=== PATIENT | male | born 1985 | race Caucasian/White ===

== ENCOUNTER 2022-10-23 20:44 | Emergency (ER) | payer BC, SELFPAY ==
[2022-10-23 21:12] VITALS: BP 150/96; PULSE 83; RESP 20; TEMP 36.7; O2SAT 99; BMI 36.6
--- NOTE | 2022-10-23 22:47 | CTR_ITS ---
PROCEDURE INFORMATION: Exam: CT Abdomen And Pelvis Without Contrast Exam date and time: 10/23/2022 10:51 PM Age: 37 years old Clinical indication: Abdominal pain; Flank; Right; Additional info: R flank pain TECHNIQUE: Imaging protocol: Computed tomography of the abdomen and pelvis without contrast. Sagittal and coronal reformatted images were created and reviewed. Radiation optimization: All CT scans at this facility use at least one of these dose optimization techniques: automated exposure control; mA and/or kV adjustment per patient size (includes targeted exams where dose is matched to clinical indication); or iterative reconstruction. REPORTING DATA: Count of CT and Cardiac NM exams in prior 12 months: This patient has received 0 known CTs and 0 known cardiac nuclear medicine studies in the 12 months prior to the current study. COMPARISON: No relevant prior studies available. RADIATION DOSE METRICS: Total DLP (mGy-cm): 1032.6 FINDINGS: Limitations: Evaluation of solid organs and vasculature is limited without intravenous contrast. This is standard protocol for evaluation of possible urolithiasis. Lungs: Visualized lungs are clear. Pleural spaces: No pleural effusion. Heart: Visualized portions of the heart are unremarkable. Liver: The liver is unremarkable. Gallbladder and bile ducts: Few stones in the gallbladder. No gallbladder wall thickening. No biliary ductal dilatation. Pancreas: The pancreas is unremarkable. No pancreatic ductal dilatation. Spleen: The spleen is unremarkable. Adrenal glands: The right and left adrenal glands are unremarkable. Kidneys and ureters: The right and left kidneys are unremarkable. The right and left ureters are unremarkable. No hydroureteronephrosis. No calcified urolithiasis. Stomach and bowel: No obstruction. No mucosal thickening. Appendix: The appendix is visualized and is unremarkable. No findings to suggest acute appendicitis. Intraperitoneal space: No free intraperitoneal air. No ascites. No loculated fluid collections to suggest an abscess. Vasculature: Minimal atherosclerotic changes in the visualized arteries. No evidence for aortic aneurysm. Lymph nodes: No lymphadenopathy. Urinary bladder: Unremarkable as visualized. Reproductive: Unremarkable as visualized. Bones/joints: [id number] multilevel degenerative changes in the visualized spine. Soft tissues: The extra-abdominal soft tissues are unremarkable. CT/CT kidney stone [id number] IMPRESSION: 1. No acute abnormality in the abdomen or pelvis. 2. Cholelithiasis. 3. Incidental/nonacute findings are listed in the report.
[2022-10-23 23:30] LABS: Basophils # 0.1 10^3/uL (0.0-0.1); Basophils % 0.4 %; Eosinophils # 0.2 10^3/uL (0.0-0.8); Eosinophils % 1.6 %; Hematocrit 47.2 % (42.0-52.0); Hemoglobin 15.7 g/dL (11.7-16.6); Lymphocytes # 2.5 10^3/uL (0.8-4.8); Lymphocytes % 21.1 %; Mean Corpuscular HGB Conc 33.3 g/dL (30.0-36.0); Mean Corpuscular Volume 90.1 fl (80-94); Mean Platelet Volume 10.1 fL (7.4-10.4); Monocytes # 0.9 10^3/uL (0.2-0.9); Monocytes % 7.5 %; Neutrophils % 68.7 %; Nucleated Red Blood Cells % 0 %; Platelet Count 258 10^3/cmm (130-400); Red Blood Count 5.24 10^6/uL (4.1-5.3); Red Cell Distribution Width 11.9 % (12.1-15.1); White Blood Count 11.7 10^3/uL (4.0-10.0)
[2022-10-23 23:46] LABS: Alanine Aminotransferase 28 U/L (0-41); Albumin Level 4.6 g/dL (3.5-5.2); Alkaline Phosphatase 96 U/L (40-130); Anion Gap 15.9 (5-19); Aspartate Amino Transferase 24 U/L (0-40); Blood Urea Nitrogen 13 mg/dL (6-20); Carbon Dioxide 25 mmol/L (22-29); Chloride 104 mmol/L (98-107); Globulin 2.4 g/dL (1.3-4.6); Glomerular Filtration Rate 74.5 mL/min (90-130); Glucose 97 mg/dL (65-115); Lipase 44 U/L (13-60); Osmolality Calculated 292 mOsm/kg (285-295); Potassium 3.9 mmol/L (3.5-5.1); Sodium 141 mmol/L (136-145); Total Bilirubin 0.5 mg/dL (0.15-1.2)
[2022-10-23 23:47] VITALS: BP 164/98; O2SAT 98
[2022-10-23 23:54] LABS: Add Urine Microscopic? NO; Charge for UA Resulting for Rev
[2022-10-24 00:04] LABS: Bilirubin Urine Neg (Negative); Blood Urine Neg (Negative); Glucose Urine UA Norm (Normal); Ketones Urine Negative (Negative); Leukocyte Esterase Urine Negative (Negative); Nitrate Urine Negative (Negative); Protein Urine Neg (Negative); Urine Appearance Clear (CLEAR); Urine Color Yellow (Yellow); Urobilinogen Urine Neg (Negative); pH Urine 5 (5-7)
--- NOTE | 2022-10-24 05:14 | ED_ITS ---
HPI - Abdominal Pain General: Chief Complaint: Abdominal Pain Stated Complaint: right abdomen pain Time Seen by Provider: 10/23/22 22:46 Source: patient and family History of Present Illness: 37-year-old with right-sided flank pain radiating into his right lower quadrant. He has had this pain on and off for a couple of weeks. It was greatest in intensity prior to arrival. It is improved significantly currently. No history of belly surgery. No fever. No vomiting. No diarrhea. No history of kidney stones. MD elicited complaint: flank pain Pertinent past history: none Onset (ago): hour(s) Pain Consistency: intermittent Location: R flank Severity: similar to previous episodes Quality: stabbing and aching Radiation: RLQ Migration to: no migration Exacerbating factors: movement Relieving factors: nothing Associated Symptoms: Reports nausea (Mild); Denies constipation, dysuria, fever(s), syncope and vomiting Review of Systems Const: Denies: fever(s) ENMT: Denies: throat pain Card: Denies: chest pain or syncope Resp: Denies: dyspnea, productive cough or non-productive cough GI: Reports: nausea (Mild); Denies: vomiting or constipation : Reports: flank pain; Denies: difficulty urinating or dysuria Musc: Denies: neck pain Physical Exam Const: COMMON NORMALS: no acute distress GENERAL APPEARANCE: cooperative; not ill appearing and not frail appearing HENMT: COMMON NORMALS: normocephalic, atraumatic and Normal external nose present HEAD & SCALP: normocephalic and atraumatic FACE & SINUS: normal facial exam and face symmetric NOSE: Normal external nose present Eye: COMMON NORMALS: Equal, round and reactive pupils present and EOMs intact bilaterally PUPIL: Yes Equal, round and reactive pupils present Neck/C-Spine: GENERAL: Yes trachea midline Chest: CHEST: Yes Symmetrical chest wall rise Resp: COMMON NORMALS: normal respiratory effort, No retractions, No use of accessory muscles and clear to auscultation bilaterally AUSCULTATION: clear to auscultation bilaterally Cardio: COMMON NORMALS: regular rate and regular rhythm RATE: regular rate RHYTHM: regular rhythm GI: COMMON NORMALS: Normal to inspection, nondistended, normoactive bowel sounds present : BLADDER/KIDNEY EXAM: Yes CVA tenderness Back/Pelvis: GENERAL BACK: Yes CVA tenderness CVA tenderness: right (Minimal) Extremity: COMMON NORMALS: no pedal edema Neuro: EMMY COMA SCALE: document GCS findings [place] coma scale eye opening: Spontaneous Emmy coma scale verbal response: Orientated Emmy coma scale motor response: Obey commands Emmy coma scale total score: 15 SENSORY EXAM: Yes extremities (intact) Psych: COMMON NORMALS: speech normal SPEECH: Yes normal speech Skin: COMMON NORMALS: no rashes or lesions noted GENERAL SKIN EXAM: no rashes or lesions noted Course Vital Signs: Vital signs: Vital Signs Temperature 98.0 F 10/23/22 21:12 Pulse Rate 83 10/23/22 21:12 Respiratory Rate 20 H 10/23/22 21:12 Blood Pressure 164/98 10/23/22 23:47 Pulse Oximetry 98 10/23/22 23:47 Oxygen Delivery Me thod 10/23/22 21:12 MDM - Abdominal Pain Medical Decision Making Pain is nearly resolved in the ER. White blood cell count is 11.7. BMP is normal. Liver enzymes are nonremarkable. No hematuria or infection on urinalysis. Lipase is normal. CRP is 3. CT shows cholelithiasis without signs of cholecystitis or bile duct dilatation. There is no stone. Appendix is normal. He will be allowed home for further treatment and outpatient work-up is indicated. Lab Data 10/23/22 23:21 10/23/22 23:21 Labs/Radiology: Radiology Impressions Abdomen/Pelvis CT 10/23/22 22:47 IMPRESSION: 1. No acute abnormality in the abdomen or pelvis. 2. Cholelithiasis. 3. Incidental/nonacute findings are listed in the report. Laboratory Results WBC 11.7 10^3/uL (4.0-10.0) H 10/23/22 23:21 RBC 5.24 10^6/uL (4.1-5.3) 10/23/22 23:21 Hgb 15.7 g/dL (11.7-16.6) 10/23/22 23:21 Hct 47.2 % (42.0-52.0) 10/23/22 23:21 MCV 90.1 fl (80-94) 10/23/22 23:21 MCH 30.0 pg (28.0-34.0) 10/23/22 23:21 MCHC 33.3 g/dL (30.0-36.0) 10/23/22 23:21 RDW 11.9 % (12.1-15.1) L 10/23/22 23:21 Plt Count 258 10^3/cmm (130-400) 10/23/22 23:21 MPV 10.1 fL (7.4-10.4) 10/23/22 23:21 Neut % (Auto) 68.7 % 10/23/22 23:21 Lymph % (Auto) 21.1 % 10/23/22 23:21 [place] % (Auto) 7.5 % 10/23/22 23:21 Eos % (Auto) 1.6 % 10/23/22 23:21 Baso % (Auto) 0.4 % 10/23/22 23: Neut # (Auto) 8.00 10^3/uL (1.8-7.7) H 10/23/22 23:21 Lymph # (Auto) 2.5 10^3/uL (0.8-4.8) 10/23/22 23:21 [place] # (Auto) 0.9 10^3/uL (0.2-0.9) 10/23/22 23:21 Eos # (Auto) 0.2 10^3/uL (0.0-0.8) 10/23/22 23:21 Baso # (Auto) 0.1 10^3/uL (0.0-0.1) 10/23/22 23:21 Nucleated RBC % (auto) 0 % 10/23/22 23: Nucleated RBCs # 0.0 /100WBC 10/23/22 23:21 Sodium 141 mmol/L (136-145) 10/23/22 23:21 Potassium 3.9 mmol/L (3.5-5.1) 10/23/22 23:21 Chloride 104 mmol/L (98-107) 10/23/22 23:21 Carbon Dioxide 25 mmol/L (22-29) 10/23/22 23:21 Anion Gap 15.9 (5-19) 10/23/22 23:21 BUN 13 mg/dL (6-20) 10/23/22 23:21 Creatinine 1.1 mg/dL (0.7-1.2) 10/23/22 23:21 GFR Calculation 74.5 mL/min (90-130) L 10/23/22 23:21 Glucose 97 mg/dL (65-115) 10/23/22 23:21 Calculated Osmolality 292 mOsm/kg (285-295) 10/23/22 23:21 Calcium 9.0 mg/dL (8.5-10.5) 10/23/22 23:21 Total Bilirubin 0.5 mg/dL (0.15-1.2) 10/23/22 23:21 AST 24 U/L (0-40) 10/23/22 23:21 ALT 28 U/L (0-41) 10/23/22 23:21 Alkaline Phosphatase 96 U/L (40-130) 10/23/22 23:21 C-Reactive Protein 3.0 mg/L (0.0-4.9) 10/23/22 23:21 Total Protein 7.0 g/dL (6.6-8.7) 10/23/22 23:21 Albumin 4.6 g/dL (3.5-5.2) 10/23/22 23:21 Globulin 2.4 g/dL (1.3-4.6) 10/23/22 23:21 Lipase 44 U/L (13-60) 10/23/22 23:21 Urine Color Yellow (Yellow) 10/23/22 23:48 Urine Appearance Clear (CLEAR) 10/23/22 23:48 Urine pH 5 (5-7) 10/23/22 23:48 Ur Specific [place] 1.020 (1.005-1.030) 10/23/22 23:48 Urine Protein Neg (Negative) 10/23/22 23:48 Urine Glucose (UA) Norm (Normal) 10/23/22 23:48 Urine Ketones Negative (Negative) 10/23/22 23:48 Urine Blood Neg (Negative) 10/23/22 23:48 Urine Nitrate Negative (Negative) 10/23/22 23:48 Urine Bilirubin Neg (Negative) 10/23/22 23:48 Urine Urobilinogen Neg mg/dL (Negative) 10/23/22 23:48 Ur Leukocyte Esterase Negative (Negative) 10/23/22 23:48 Discharge Plan Discharge Patient Disposition: Home Clinical Impression: Biliary colic Condition: Stable Prescriptions: New ketorolac 10 mg tablet 10 mg PO TID PRN (Reason: pain) Qty: 10 0RF Prevacid 30 mg capsule,delayed release(DR/EC) 30 mg PO DAILY Qty: 30 0RF Discharge Orders: Discharge ED (Routine); Ordered 10/24/22 Ordered By: Nicko Albarado Referrals: Claire Regan [Primary Care Provider] - 1-3 days Patient Instructions: Biliary Colic (ED), Abdominal Pain (ED) Activity Restrictions/Additional Instructions: Return for worsening pain despite treatment, vomiting liquids or medications, fever greater than 100, other concerning symptoms. Case management will set you up a follow-up appointment with the surgery clinic. You should get a call from them early in the week. Coding Level of Care Code ED Admission Liaison for Parth Ingram
--- NOTE | 2022-10-25 10:57 | DCPLANNER ---
Addendum entered by Yoly Dinero 11/25/22 09:09: Patient had a follow up appointment scheduled with general surgery - patient did not attend appointment. Addendum entered by Yoly Dinero 10/27/22 09:09: Patient has a follow up appointment scheduled for , November 23, 2022 at 8:[address] Us at general surgery. Clinic will call patient with appointment information. Original Note: credit administration manager had message to schedule a follow up appointment for patient with general surgery. credit administration manager sent patients information to the front office staff at general surgery. Patients information will be reviewed. Clinic will call patient with appointment information.
== END 2022-10-24 01:09 | disposition home or self-care (01) ==
PROVIDERS: Emergency Provider Emergency Medicine; PCP Nurse Practitioner Family
DX: K80.20 Calculus of gallbladder without cholecystitis without obstruction (principal)
CPT/HCPCS: 74176; 80053; 81003; 83690; 85025; 86140; 99284